=== PATIENT | male | born 1985 | race Caucasian/White ===

== ENCOUNTER 2017-11-21 10:13 | Emergency (ER) | payer OTHER ==
[2017-11-21 10:23] VITALS: BP 131/81
--- NOTE | 2017-11-21 11:31 | ED ---
GI/ HPI - HPI Summary HPI Summary: 32 yo WM c/o urinary frequency, urgency and mild dysuria at the end of void x 2 days associated with dehydration, states his urine has been darker and cloudy than usual - History of Current Complaint Chief Complaint: UCGU Time Seen by Provider: 11/21/17 10:43 Stated Complaint: URINARY COMPLAINT Hx Obtained From: Patient Onset/Duration: Started Days Ago Timing: Constant Severity: Moderate Current Severity: Moderate Vaginal Bleeding Description: Dark Red Pain Intensity: 0 Additional Locations for Males: Penis Pain Characteristics: Pressure Associated Signs and Symptoms: Positive: Negative - Allergy/Home Medications Allergies/Adverse Reactions: Allergies Allergy/AdvReac Type Severity Reaction Status Date / Time bacitracin Allergy Rash Verified 11/21/17 10:20 [From Neosporin ([id number])] neomycin Allergy Rash Verified 11/21/17 10:20 [From Neosporin ([id number])] polymyxin B Allergy Rash Verified 11/21/17 10:20 [From Neosporin ([id number])] Sulfa (Sulfonamide Allergy Unknown Verified 11/21/17 10:20 Antibiotics) Reaction Details PMH/Surg Hx/FS Hx/Imm Hx Previously Healthy: Yes Musculoskeletal History: Denies: Hx Scoliosis Infectious Disease History: No Infectious Disease History: Denies: Traveled Outside the [place] in Last 30 Days - Social History Alcohol Use: None Substance Use Type: Reports: None Smoking Status (MU): Never Smoked Tobacco Review of Systems Constitutional: Negative Eyes: Negative ENT: Negative Cardiovascular: Negative Respiratory: Negative Gastrointestinal: Negative Positive: see HPI, burning, dysuria, frequency, urgency Musculoskeletal: Negative Skin: Negative Neurological: Negative Psychological: Normal All Other Systems Reviewed And Are Negative: Yes Physical Exam Triage Information Reviewed: Yes Vital Signs On Initial Exam: Initial Vitals Temp Pulse Resp BP Pulse Ox 36.8 C 88 16 131/81 99 11/21/17 10:20 11/21/17 10:20 11/21/17 10:20 11/21/17 10:20 11/21/17 10:20 Vital Signs Reviewed: Yes Appearance: Positive: Well-Appearing Skin: Positive: Warm Eyes: Positive: Normal ENT: Positive: Normal ENT inspection Neck: Positive: Supple Cardiovascular: Positive: Normal, S1, S2 Abdomen Description: Positive: Soft. Negative: CVA Tenderness (R), CVA Tenderness (L) Male Genital Exam: Positive: Other - suprapubic pressure Musculoskeletal: Positive: Normal Neurological: Positive: Normal Diagnostics - Vital Signs Vital Signs Temp Pulse Resp BP Pulse Ox 11/21/17 10:20 36.8 C 88 16 131/81 99 - Laboratory Lab Results: Lab Results 11/21/17 Range/Units 10:49 POC Urine Color Yellow POC Urine Clarity Slightly cloudy POC Urine pH 8.5 (5-9) POC Ur Specif [place] 1.015 (1.010-1.030) POC Urine Protein Negative (Negative) POC Ur Glucose (UA) Negative (Negative) POC Urine Ketones Negative (Negative) POC Urine Blood Negative (Negative) POC Urine Nitrite Negative (Negative) POC Urine Bilirubin Negative (Negative) POC Urine Urobilinogen 1.0 (Negative) POC U Leukocyte Esteras Negative (Negative) Lab Statement: Any lab studies that have been ordered have been reviewed, and results considered in the medical decision making process. GIGU Course/Dx - Course Course Of Treatment: UA - cloudy in appearance with high pH of 8.5 and with constellation of current sx pt will be tx'd with cipro - Diagnoses Provider Diagnoses: Urinary tract infection in male Discharge - Sign-Out/Discharge Documenting (check all that apply): Discharge/Admit/Transfer - Discharge Plan Condition: Stable Disposition: HOME Prescriptions: Ciprofloxacin TAB* [Cipro 500 MG TAB*] 500 mg PO BID 10 Days #20 tab Patient Education Materials: Urinary Tract Infection in Men (ED) Referrals: No Primary Care Phys,NOPCP [Primary Care Provider] - Additional Instructions: follow up with urology if symptoms persist on antibiotics for more than 10 days - Billing Disposition and Condition Condition: STABLE Disposition: HOME
== END 2017-11-21 11:33 | disposition home or self-care (01) ==
LOC: UCEAST 10:13
DX: N39.0 Urinary tract infection, site not specified (principal); Z88.3 Allergy status to other anti-infective agents; Z88.2 Allergy status to sulfonamides
CPT/HCPCS: 81003; 99212; G0463